=== PATIENT | female | born 1935 | race Caucasian/White ===

== ENCOUNTER 2018-06-10 10:40 | Inpatient (IN) | payer MEDICARE, OTHER ==
[~2018-06-10] VITALS: Ht 165.1 cm; Wt 62.5 kg
[~2018-06-10 10:40] MED LIST: LANS15CA21 OR
[2018-06-10 11:21] LABS: Basophils # (auto) 0.1 uL; Basophils % (auto) 0.6 % (0.0-2.0); Eosinophils # (auto) 0.1 uL; Eosinophils % (auto) 0.5 % (0.0-7.0); Hematocrit 44.5 % (36.0-46.0); Hemoglobin 14.8 g/dL (12.2-16.2); Lymphocytes # (auto) 0.9 uL; Lymphocytes % (auto) 8.3 % (10.0-50.0); Mean Corpuscular Hemoglobin 30.5 pg (28.0-32.0); Mean Corpuscular Hgb Conc. 33.3 g/dL (32.0-36.0); Mean Corpuscular Volume 91.6 fL (80.0-100.0); Monocytes # (auto) 0.7 uL; Monocytes % (auto) 6.7 % (0.0-12.0); Neutrophils % (auto) 83.9 % (37.0-80.0); Platelet Count (auto) 193 10^3/uL (140-450); Red Blood Cells 4.86 10^6/uL (4.0-5.20); Red Cell Distribution Width 15.4 % (11.8-14.3); White Blood Cell 10.7 10^3/uL (4.4-10.8)
[2018-06-10 11:44] LABS: Albumin 3.5 g/dL (3.4-5.0); Bilirubin, Total 0.5 mg/dL (0.2-1.0); Calcium 8.7 mg/dL (8.5-10.1); Potassium 3.8 mmol/L (3.5-5.1)
[2018-06-10] MEDS ORDERED: SODIUM CHLORIDE 0.9% 500 ML IVB ONE (11:53)
[2018-06-10 12:35] LABS: Amylase 89 U/L (25-115); Lipase 136 U/L (73-393)
[2018-06-10 13:10] LABS: Urine Bacteria FEW /hpf (None Seen); Urine Blood Negative /uL (Negative); Urine Hyaline Cast FEW /lpf (0 - 2); Urine Mucus FEW (None Seen); Urine Specific Gravity 1.015 (1.001-1.035); Urine WBC 1 /hpf (0 - 5)
[2018-06-10] MEDS ORDERED: MORPHINE SULF INJ 2 MG/ML SYRINGE 1ML IV PRN ×2 (13:45)
[2018-06-10] MEDS ORDERED: ALBUTEROL SULF 2.5 MG/0.5ML(0.5%) NEB SOLN NEB PRN (13:45)
[2018-06-10] MEDS ORDERED: NITROGLYCERIN 0.4 MG SL TAB SL PRN (13:45)
[2018-06-10] MEDS ORDERED: cefTRIAXone 1GM/10ml IVPUSH 10 ML IV ONE (13:45)
[2018-06-10] MEDS ORDERED: PANTOPRAZOLE 40 MG/10 ML VIAL IV ONE (13:45)
[2018-06-10] MEDS ORDERED: MORPHINE SULFATE 4 MG/ML SYR/VIAL IV PRN (13:45)
[2018-06-10 13:55] VITALS: BP 154/90
[2018-06-10] MEDS: SODIUM CHLORIDE 0.9% 1,000 ML IV SCH ×2 (14:11→23:52)
[2018-06-10] MEDS: ENOXAPARIN SOD 40 MG/0.4 ML SYRINGE SC SCH (14:33)
[2018-06-10] MEDS: AZITHROMYCIN 500MG/ 250ML 250 ML IV SCH (14:33)
[2018-06-10 16:24] VITALS: BP 85/56
[2018-06-10 17:00] VITALS: BP 112/61
[2018-06-10 20:00] VITALS: BP 103/57
[2018-06-10 22:22] VITALS: BP 103/57
[2018-06-11 04:45] VITALS: BP 92/64
[2018-06-11 09:00] VITALS: BP 114/74
[2018-06-11] MEDS: PANTOPRAZOLE 40 MG/10 ML VIAL IV SCH (09:34)
[2018-06-11] MEDS: AZITHROMYCIN 500MG/ 250ML 250 ML IV SCH (09:34)
[2018-06-11] MEDS: cefTRIAXone 1GM/10ml IVPUSH 10 ML IV SCH (09:35)
[2018-06-11] MEDS: ENOXAPARIN SOD 40 MG/0.4 ML SYRINGE SC SCH (09:35)
[2018-06-11] MEDS: ONDANSETRON HCL 4 MG/2 ML VIAL IV PRN ×2 (09:35→16:37)
[2018-06-11 11:29] LABS: Basophils # (auto) 0 uL; Basophils % (auto) 0.4 % (0.0-2.0); Eosinophils # (auto) 0 uL; Eosinophils % (auto) 0.5 % (0.0-7.0); Hematocrit 37.5 % (36.0-46.0); Hemoglobin 12.8 g/dL (12.2-16.2); Lymphocytes # (auto) 0.9 uL; Lymphocytes % (auto) 12.8 % (10.0-50.0); Mean Corpuscular Hemoglobin 31.1 pg (28.0-32.0); Mean Corpuscular Volume 91.6 fL (80.0-100.0); Monocytes # (auto) 0.7 uL; Monocytes % (auto) 9.5 % (0.0-12.0); Neutrophils # (auto) 5.6 uL; Neutrophils % (auto) 76.8 % (37.0-80.0); Nucleated Red Blood Cells % 0.1 %; Platelet Count (auto) 157 10^3/uL (140-450); Red Cell Distribution Width 14.9 % (11.8-14.3); White Blood Cell 7.3 10^3/uL (4.4-10.8)
[2018-06-11] MEDS ORDERED: MORPHINE SULF INJ 2 MG/ML SYRINGE 1ML IV PRN (11:30)
[2018-06-11 13:00] VITALS: BP 118/81
[2018-06-11] MEDS ORDERED: ACETAMINOPHEN 325 MG TAB PO PRN (14:15)
[2018-06-11] MEDS: SODIUM CHLORIDE 0.9% 1,000 ML IV SCH ×2 (14:55→20:09)
[2018-06-11 17:00] VITALS: BP 145/77
[2018-06-11 20:00] VITALS: BP 118/78
[2018-06-11 21:23] VITALS: BP 118/78
[2018-06-12 05:24] VITALS: BP 120/68
[2018-06-12] MEDS: SODIUM CHLORIDE 0.9% 1,000 ML IV SCH (05:40)
[2018-06-12 08:00] VITALS: BP 112/65
[2018-06-12] MEDS ORDERED: FLUMAZENIL 0.1 MG/ML INJ 10ML MDV IV ONE (08:16)
[2018-06-12] MEDS ORDERED: LIDOCAINE VISCOUS 2% 15ML UD ONE (08:16)
[2018-06-12] MEDS ORDERED: NALOXONE HCL 0.4 MG/ML VIAL ONE (08:16)
[2018-06-12] MEDS ORDERED: fentaNYL CITRATE 100 MCG/2 ML VL ONE (08:16)
[2018-06-12] MEDS ORDERED: MIDAZOLAM HCL 5 MG/ML-1ML VIAL ONE (08:17)
[2018-06-12] MEDS ORDERED: diphenhdrAMINE HCL 50 MG/1 ML VL ONE (08:17)
[2018-06-12] MEDS ORDERED: SODIUM CHLORIDE LOCK 10 ML ONE (08:18)
[2018-06-12 08:35] VITALS: BP 113/69
[2018-06-12 08:48] LABS: INR 1.11 (0.9-1.15); Partial Thromboplastin Time 30.2 sec (23.78-33.04); Prothrombin Time 11.8 sec (9.27-12.13)
[2018-06-12] MEDS: cefTRIAXone 1GM/10ml IVPUSH 10 ML IV SCH (09:00)
[2018-06-12] MEDS ORDERED: LIDOCAINE VISCOUS 2% 15ML UD MT ONE (09:53)
[2018-06-12] MEDS ORDERED: fentaNYL 100MCG/HR 100 MCG/HR PAT TD ONE ×2 (09:53→09:56)
[2018-06-12] MEDS ORDERED: MIDAZOLAM HCL 1MG/1ML-2 ML VIAL IV ONE ×2 (09:53→09:56)
[2018-06-12] MEDS: AZITHROMYCIN 500MG/ 250ML 250 ML IV SCH (10:00)
[2018-06-12] MEDS: PANTOPRAZOLE 40 MG/10 ML VIAL IV SCH (10:00)
[2018-06-12] MEDS: ENOXAPARIN SOD 40 MG/0.4 ML SYRINGE SC SCH (10:00)
[2018-06-12 13:00] VITALS: BP 113/73
== END 2018-06-12 18:00 | disposition home or self-care (01) | DRG 392 ==
LOC: ER 10:40 → EDBD 10:40 → TELE 10:41 → TELE-CENTR 14:20
PROVIDERS: ADMIT Internal Medicine; ATTEND Family Medicine
PROC: 0DJ08ZZ Inspection of Upper Intestinal Tract, Via Natural or Artificial Opening Endoscopic (ICD-10-PCS; principal; 2018-06-12 09:52)
DX: R11.2 Nausea with vomiting, unspecified (principal); K56.600 Partial intestinal obstruction, unspecified as to cause; K31.4 Gastric diverticulum; K22.2 Esophageal obstruction; G62.9 Polyneuropathy, unspecified; H54.7 Unspecified visual loss; K44.9 Diaphragmatic hernia without obstruction or gangrene; I70.0 Atherosclerosis of aorta; M46.06 Spinal enthesopathy, lumbar region; Z98.84 Bariatric surgery status; Z98.49 Cataract extraction status, unspecified eye
CPT/HCPCS: 36415; 43235; 71045; 74176; 80053; 81001; 82150; 83690; 85025; 85610; 85730; 86850; 86900; 86901; 93005; 94761; 96361; 96374; 96375; A6257; C9113; J0696; J2250; J2405

== ENCOUNTER 2019-01-03 00:22 | Emergency (ER) | payer MEDICARE, OTHER ==
[~2019-01-03] VITALS: Ht 160 cm; Wt 61.2 kg
[2019-01-03] MEDS ORDERED: EPINEPHrine HCL 1 MG/10 ML SYRG IV ONE (00:23)
[2019-01-03] MEDS ORDERED: CALCIUM CHLOR(10%) 100MG/ML 10ML SYRINGE IV ONE (00:23)
[2019-01-03] MEDS ORDERED: AMIODARONE HCL (50 MG/ ML) 3 ML VIAL IV ONE (00:23)
[2019-01-03] MEDS ORDERED: SODIUM BICARBONATE 8.4% INJ 50ML SYRINGE IV ONE (00:23)
[2019-01-03 01:00] VITALS: BP 152/105
[2019-01-03] MEDS ORDERED: EPINEPHrine HCL 1 MG/10 ML SYRG ONE ×2 (01:01→01:02)
[2019-01-03] MEDS ORDERED: SODIUM BICARBONATE 8.4% INJ 50ML SYRINGE ONE (01:02)
[2019-01-03] MEDS ORDERED: NOREPINEPHRINE 8 MG/250ML KIT 250 ML IV ONE (01:07)
[2019-01-03 01:10] LABS: Hematocrit 31.8 % (36.0-46.0); Hemoglobin 10.4 g/dL (12.2-16.2); Mean Corpuscular Hgb Conc. 32.5 g/dL (32.0-36.0); Mean Corpuscular Volume 98.3 fL (80.0-100.0); Platelet Count (auto) 94 10^3/uL (140-450); Red Blood Cells 3.24 10^6/uL (4.0-5.20); Red Cell Distribution Width 14.9 % (11.8-14.3); White Blood Cell 5.3 10^3/uL (4.4-10.8)
[2019-01-03 01:27] LABS: Basophils % (manual) 0 (0.0-2.0); Blast Cells 0; Metamyelocytes % 0; Myelocytes % 0; Promyelocytes % 0
[2019-01-03 01:29] LABS: Albumin 1.9 g/dL (3.4-5.0); BUN/Creatinine Ratio 19.7; Calcium 6.5 mg/dL (8.5-10.1); Potassium 3.4 mmol/L (3.5-5.1)
[2019-01-03 01:31] LABS: Bilirubin, Total 0.1 mg/dL (0.2-1.0); Total Protein 3.9 g/dL (6.4-8.2)
[2019-01-03 01:32] LABS: INR 1.38 (0.9-1.15); Partial Thromboplastin Time 50.5 sec (23.78-33.04); Prothrombin Time 14.5 sec (9.27-12.13)
[2019-01-03] MEDS ORDERED: NOREPINEPHRINE 8 MG/250ML KIT 250 ML IV SCH (01:45)
[2019-01-03 01:57] LABS: Band Neutrophils % (manual) 4; Eosinophils % (manual) 2 (0-7); Lymphocytes % (manual) 72 (10.0-50.0); Monocytes % (manual) 5 (0-12); Reactive Lymphocytes 2
== END 2019-01-03 01:25 | disposition expired ==
LOC: EDBD 00:22 → ER 00:22
DX: I46.9 Cardiac arrest, cause unspecified (principal)
CPT/HCPCS: 31500; 36415; 36600; 51702; 71045; 80053; 82805; 83735; 84443; 84484; 85007; 85027; 85610; 85730; 87070; 87205; 92950; 93005; 94761; 99285; J0171; J0282; 94002